=== PATIENT | male | born 2000 | race Caucasian/White ===

== ENCOUNTER 2020-08-08 22:55 | Emergency (ER) | payer OTHER ==
[~2020-08-08] VITALS: Ht 170.2 cm; Wt 81.7 kg
[2020-08-08 23:11] VITALS: BP 126/73
[2020-08-08] MEDS ORDERED: NOHOMEMEDICATIONS (23:14)
== END 2020-08-09 01:05 | disposition home or self-care (01) ==
LOC: M.ERS 22:55
DX: Z20.822 Contact with and (suspected) exposure to COVID-19 (principal); F17.210 Nicotine dependence, cigarettes, uncomplicated